=== PATIENT | female | born 1970 | race Caucasian/White ===

== ENCOUNTER 2017-01-03 18:40 | Emergency (ER) | payer OTHER ==
[~2017-01-03] VITALS: Ht 165.1 cm; Wt 78.0 kg
[~2017-01-03 18:40] MED LIST: ACYCLOVIR; ACYCLOVIR 400400 MG PO; ADVIL100 M2 PO; APAP500 PO; CLEOCIN HCL150 MG PO; CLEOCIN HCL300 MG PO; COUMADIN 2.5MG2.5 M1 PO; COUMADIN 5 MG TA5 M1 PO; COUMADIN7.5 MG; COUMADIN7.5 MG PO; DOXYCYCLINE 10100 M1 PO; ENOXAPARIN120 MG/0.1 SUBQ; ENOXAPARIN150 MG/1 M SQ; ENOXAPARIN150 MG/11 SUBQ; FLEXERIL PO; HYDROCODON-ACE1 EAC7 PO; HYDROCODONE-AP1 EAC6 PO; IRON325 PO; LASIX 20 MG TAB20 MG PO; MAGNESIUM OXID200 MG PO; MAGOX 400400 MG PO; MULTIVITAMINS1 EAC7 PO; NAPROSYN500 MG PO; NEURONTIN 300300 M1 PO; NEURONTIN 300M300 M2 PO; NORCO 5-325 TA1 EACH PO; PERCOCET 5-3251 EACH PO; PHENERGAN 25 MG25 M1 PO; PROMS25 WY RECTAL; SIMVASTATIN40 MG PO; VITAMIN D2000 UNI1 PO; ZOCOR40 MG PO
[2017-01-03 19:46] LABS: URINE BILIRUBIN NEGATIVE (Negative); URINE BLOOD NEGATIVE (Negative); URINE COLOR YELLOW; URINE GLUCOSE-RANDOM* NEGATIVE (Negative); URINE KETONES NEGATIVE (Negative); URINE LEUKOCYTES-REFLEX NEGATIVE (Negative); URINE PROTEIN (DIPSTICK) NEGATIVE (Negative); URINE SPECIFIC GRAVITY 1.015 (1.003-1.035)
[2017-01-03] MEDS ORDERED: XARELTO20 MG PO (20:08)
[2017-01-03] MEDS ORDERED: PROTONIX40 M1 PO (20:12)
[2017-01-03] MEDS ORDERED: LIPITOR 20 MG T20 M1 PO (20:13)
[2017-01-03] MEDS ORDERED: ANASPAZ0.125 MG SL (20:13)
[2017-01-03] MEDS ORDERED: ZOFRAN ODT4 MG DISSOLVE (20:14)
[2017-01-03] MEDS ORDERED: PROAIR HFA8.5 GM INH (20:15)
[2017-01-03 20:53] LABS: ABSOLUTE NEUTROPHILS 2.3 thou/uL (1.4-8.2); BASOPHILS 0.8 % (0.0-2.0); EOSINOPHILS 3.5 % (0.0-3.0); HEMATOCRIT 36.6 % (37.0-47.0); HEMOGLOBIN 12.1 gm/dL (12.0-15.0); LYMPHOCYTES 44.3 % (24.0-44.0); MCH 28.7 pg (26.0-34.0); MCHC 33.2 g/dL (28.0-37.0); MCV 86.6 fL (80.0-100.0); MONOCYTES 9.3 % (1.0-8.0); PLATELET COUNT 253 thou/uL (150-400); POLYS 42.1 % (36.0-66.0); RBC 4.23 mil/uL (4.20-5.00); RDW 14.3 % (10.5-14.5); WBC 5.5 thou/uL (4.0-11.0)
[2017-01-03 20:56] LABS: MANUAL DIFF NO
[2017-01-03 21:02] LABS: CALCIUM 8.8 mg/dL (8.5-10.1); CREATININE 0.9 mg/dL (0.6-1.0); INR 1.2; POTASSIUM 4.1 mmol/L (3.5-5.1)
[2017-01-03 21:06] LABS: ALBUMIN 3.5 g/dL (3.4-5.0); TOTAL BILIRUBIN 0.3 mg/dL (<0.1-1.0); TOTAL PROTEIN 7.3 g/dL (6.4-8.2)
[2017-01-03] MEDS ORDERED: ONDANSETRON HCL4 M2 PO (21:48)
[2017-01-03] MEDS ORDERED: BENTYL 20 MG TA20 M1 PO (21:48)
[2017-01-03] MEDS ORDERED: PEPCID40 MG PO (21:48)
[2017-01-03 22:02] VITALS: BP 143/79
== END 2017-01-03 22:09 | disposition home or self-care (01) ==
LOC: ER 18:40
PROVIDERS: Emergency Medicine
DX: R10.31 Right lower quadrant pain (principal); I10 Essential (primary) hypertension; Z86.718 Personal history of other venous thrombosis and embolism; Z86.73 Personal history of transient ischemic attack (TIA), and cerebral infarction without residual deficits; Z88.1 Allergy status to other antibiotic agents; Z88.6 Allergy status to analgesic agent; Z88.5 Allergy status to narcotic agent; Z88.0 Allergy status to penicillin; Z88.8 Allergy status to other drugs, medicaments and biological substances